=== PATIENT | female | born 1955 | race African-American/Black ===

== ENCOUNTER → 2017-10-17 | Outpatient (CLI) | payer OTHER ==
--- NOTE | 2017-10-18 14:15 | XCELERA REPORT ---
[address] [address] Transthoracic Echocardiogram Report Name: MAUDE NOONAN Age: 62 yrs Gender: Female : 1955 Patient Status: Preadmit Patient Location: Study Date: 10/17/2017 08:01 AM Height: 67 in Weight: 155 lb BSA: 1.8 m2 Procedure: A two-dimensional transthoracic echocardiogram with color flow and Doppler was performed. Study Quality: Fair. Reason For Study: MURMUR History: MURMUR. Ordering Physician: MARINE RUIZ Performed By: Jenifer Groves Interpretation Summary The left ventricle is normal in size. There is normal left ventricular wall thickness. LV EF is 65% Left ventricular systolic function is normal. LV diastolic function not assessed. The left ventricular wall motion is normal. There is no thrombus. There is no ventricular septal defect visualized. The right atrium is normal. The left atrium is borderline dilated. The interatrial septum is intact with no evidence for an atrial septal defect. There is no evidence of mitral valve prolapse. There is no vegetation seen on the mitral valve. There is no mitral valve stenosis. There is a mild amount of mitral regurgitation There is no aortic valve stenosis There is no LVOT obstruction. There is a mild amount of aortic regurgitation There is no tricuspid stenosis. There is a mild to moderate amount of tricuspid regurgitation No significant pulmonary hypertension.RVSP is 32 mm of Hg, with RA mean of 5. There is no pulmonic valvular stenosis. There is a mild amount of pulmonic regurgitation The aortic root is normal size. There is no pericardial effusion. MMode/2D Measurements & Calculations RVDd: 2.1 cm LVIDd: 4.7 cmFS: 34.4 % Ao root diam: 2.8 cm IVSd: 1.1 cm LVIDs: 3.1 cmEDV(Teich): 103.6 ml LVPWd: 1.1 cmESV(Teich): 37.9 ml Ao root area: 6.3 cm2 EF(Teich): 63.4 % LA dimension: 4.1 cm LVOT diam: 2.2 cm LVOT area: 4.0 cm2 Doppler Measurements & Calculations MV E max katherin: MV P1/2t max katherin: Ao V2 max: AI max katherin: 71.7 cm/sec 72.9 cm/sec 146.6 cm/sec 470.6 cm/sec MV A max katherin: MV P1/2t: 67.4 msec Ao max PG: AI max P.7 cm/sec MVA(P1/2t): 3.3 cm2 8.6 mmHg 88.6 mmHg MV E/A: 1.0 MV dec slope: ALONSO(V,D): 2.9 cm2 AI dec slope: 316.6 cm/sec2 161.2 cm/sec2 AI P1/2t: 855.2 msec LV V1 max PG: PA V2 max: PI end-d katherin: TR max katherin: 4.5 mmHg 75.0 cm/sec 72.8 cm/sec 260.6 cm/sec LV V1 max: PA max P.3 mmHg TR max P.4 cm/sec 27.2 mmHg Left Ventricle The left ventricle is normal in size. There is normal left ventricular wall thickness. LV EF is 65%. Left ventricular systolic function is normal. LV diastolic function not assessed. The left ventricular wall motion is normal. There is no thrombus. There is no ventricular septal defect visualized. Right Ventricle The right ventricle is normal in size and function. Atria The right atrium is normal. The left atrium is borderline dilated. The interatrial septum is intact with no evidence for an atrial septal defect. Mitral Valve There is no evidence of mitral valve prolapse. There is no vegetation seen on the mitral valve. There is no mitral valve stenosis. There is a mild amount of mitral regurgitation. Aortic Valve There is no aortic valvular vegetation. There is no aortic valve stenosis. There is no LVOT obstruction. There is a mild amount of aortic regurgitation. Tricuspid Valve There is no tricuspid stenosis. There is a mild to moderate amount of tricuspid regurgitation. No significant pulmonary hypertension.RVSP is 32 mm of Hg, with RA mean of 5. Pulmonic Valve There is no pulmonic valvular stenosis. There is a mild amount of pulmonic regurgitation. Great Vessels The aortic root is normal size. Effusions There is no pericardial effusion. : MARINE RUIZ > Claudia Morel
== END ==
LOC: SP 07:45
PROVIDERS: ATTEND Physician Assistant
DX: R01.1 Cardiac murmur, unspecified (principal)
CPT/HCPCS: 93306